=== PATIENT | female | born 1960 | race Caucasian/White ===

== ENCOUNTER 2017-08-11 14:50 | Emergency (ER) | payer BC ==
[~2017-08-11] VITALS: Ht 170.2 cm; Wt 82.7 kg
[2017-08-11 14:57] VITALS: BP 134/83; PULSE 80; RESP 20; TEMP 98.9; O2SAT 97
[2017-08-11] MEDS ORDERED: LEXA20TA PO (15:36)
--- NOTE | 2017-08-11 16:01 | RADRPT ---
EXAM DATE/TIME: 08/11/2017 15:15 [facility] COMPARISON: No previous studies available for comparison. INDICATIONS : Fall on right arm after tripping over dog. MEDICAL HISTORY : None. SURGICAL HISTORY : None. ENCOUNTER: Initial ACUITY: 1 day PAIN SCORE: 10/10 LOCATION: Right shoulder FINDINGS: Two view examination of the right shoulder demonstrates no evidence of fracture or dislocation. The a rm is internally rotated. The glenohumeral and acromioclavicular joints are maintained. Bony minera lization is normal. CONCLUSION: No evidence of acute fracture or dislocation. Maxime Purcell MD on August 11, 2017 at 15:57 Board Certified Radiologist. This report was verified electronically.
--- NOTE | 2017-08-11 16:04 | RADRPT ---
EXAM DATE/TIME: 08/11/2017 15:18 [facility] COMPARISON: ELBOW RIGHT LIMITED (AP & LAT), August 11, 2017, 15:21. INDICATIONS : Fall on right arm after tripping over dog. MEDICAL HISTORY : None. SURGICAL HISTORY : None. ENCOUNTER: Initial ACUITY: 1 day PAIN SCORE: 10/10 LOCATION: Right forearm FINDINGS: Nondisplaced fractures identified through the proximal radial head. There is displacement of anterior fat pad. The radius and ulna are otherwise intact. CONCLUSION: Nondisplaced fracture of the proximal right radial head. Maxime Purcell MD on August 11, 2017 at 15:58 Board Certified Radiologist. This report was verified electronically.
--- NOTE | 2017-08-11 16:09 | RADRPT ---
EXAM DATE/TIME: 08/11/2017 15:21 [facility] COMPARISON: No previous studies available for comparison. INDICATIONS : Fall on right arm after tripping over dog. MEDICAL HISTORY : None. SURGICAL HISTORY : None. ENCOUNTER: Initial ACUITY: 1 day PAIN SCORE: 10/10 LOCATION: Right elbow FINDINGS: AP and lateral views of the elbow show a suspected radial neck fracture. A small joint effusion. Soft tissues are otherwise unremarkable. CONCLUSION: Suspected radial neck fracture with small joint effusion. Consider 4 views of the elbow to better annita luate. Joseph Alexander Jr., MD on August 11, 2017 at 16:06 Board Certified Radiologist. This report was verified electronically.
[2017-08-11] MEDS ORDERED: NORC5TAB PO (16:24)
[2017-08-11] MEDS ORDERED: ACETAMINOPHEN/HYDROcodone 325 MG/5 MG TAB PO ONE (16:30)
--- NOTE | 2017-08-11 16:40 | PD ---
HPI Chief Complaint: Injury Time Seen by Provider: 15:45 Travel History International Travel<30 days: No Contact w/Intl Traveler<30days: No Traveled to known affect area: No History of Present Illness HPI 57-year-old female presents to the emergency room for evaluation of right elbow pain and swelling after injuring it just prior to arrival. Patient was walking her dog, holding the leash with the right hand when the dog took off running. It caused her to fall forward landing on her right arm. She also hit her bilateral knees but denies hitting her head or loss of consciousness. Patient denies any significant pain anywhere except for in her arm. Pain is worsened with any range of motion of the arm or when she dangles it. Relieved with support. She took 800 mg ibuprofen just prior to arrival. She only has history of depression for which she takes Lexapro. Up-to-date on tetanus. PFSH Social History Tobacco Use: No Allergies-Medications (Allergen,Severity, Reaction): Coded Allergies: clindamycin (Verified Allergy, Severe, Anaphylaxis, 08/11/17) wheat (Verified Allergy, Severe, Nausea/Vomiting, 08/11/17) Reported Meds & Prescriptions Reported Meds & Active Scripts Active [place] (Hydrocodone-Acetaminophen) 5 Mg-325 Mg Tab 1 Tab PO Q6H PRN Reported Lexapro (Escitalopram Oxalate) 20 Mg Tab 20 Mg PO DAILY Review of Systems Except as stated in HPI: all other systems reviewed are Neg Physical Exam Narrative GENERAL: Well-nourished, well-developed female in no acute distress. Afebrile. Ambulatory. SKIN: Focused skin assessment warm/dry. No erythema or ecchymosis. HEAD: Normocephalic. EYES: No scleral icterus. No injection or drainage. NECK: Supple, trachea midline. No JVD or lymphadenopathy. CARDIOVASCULAR: Regular rate and rhythm without murmurs, gallops, or rubs. RESPIRATORY: Breath sounds equal bilaterally. No accessory muscle use. MSK: Limited range of motion of the right arm secondary to pain. 2+ radial pulse. Radial, ulnar, and median nerves intact. No bony tenderness to palpation of the right shoulder or humerus. No wrist or hand pain. Data Data Last Documented VS Vital Signs Date Time Temp Pulse Resp B/P (MAP) Pulse Ox O2 Delivery O2 Flow Rate FiO2 08/11/17 14:57 98.9 80 20 134/83 (100) 97 Orders Orders Forearm (2vws) (08/11/17 ) Shoulder, Limited(2vws) (08/11/17 ) Elbow, Limited (Ap&Lat) (08/11/17 ) Splint Or Brace Apply/Monitor (08/11/17 16:15) Acetamin-Hydrocod 325-5 Mg ([place] 5-325 (08/11/17 16:30) MDM Medical Decision Making Medical Screen Exam Complete: Yes Emergency Medical Condition: Yes Medical Record Reviewed: Yes Differential Diagnosis Nondisplaced fracture, sprain, contusion, dislocation Narrative Course 57-year-old female presents to the emergency room for evaluation of right elbow pain after injuring it just prior to arrival. Patient fell on outstretched arm after her dog pulled her over. No other significant injuries. Right upper extremity is neurovascularly intact with 2+ radial pulse. Radial, ulnar, and median nerves intact. Patient has slight limited range of motion of the elbow secondary to pain. There is no obvious deformity. No edema, erythema, or ecchymosis. X-ray shows nondisplaced fracture of the radial head. Patient was given option for sling versus posterior long-arm splint with recommendation more toward sling because she will not have immediate follow-up because she is out of town and goes back home in 4 days. She was given Lortab in the emergency room for pain. Discharge with prescription for Lortab. Told to follow-up with a primary care physician or return for worsening symptoms as needed. She understands and agrees to plan. Diagnosis Primary Impression: Nondisplaced fracture of head of right radius Qualified Codes: S52.124A - Nondisplaced fracture of head of right radius, initial encounter for closed fracture Referrals: Matt Elliott MD Patient Instructions: General Instructions Additional Instructions: Rest and drink plenty of fluids. Use splint for the next 2 days. Range of motion exercises should be started as early as possible. Take ibuprofen with food as directed, as needed for pain. Take [place] as directed, as needed for pain. Do not drink alcohol or drive while taking this medication. Apply ice to the affected area for 20 minutes at a time, as needed for pain and swelling especially over the next 24-48 hours. Follow-up with a primary care physician. Return to the emergency room for worsening symptoms. Med/Other Pt SpecificInfo: Prescription(s) given Scripts Hydrocodone-Acetaminophen ([place]) 5 Mg-325 Mg Tab 1 TAB PO Q6H Y for PAIN, #12 TAB 0 Refills Prov: Lopez Reyes MD 08/11/17 Disposition: 01 DISCHARGE HOME Condition: Stable Marcy Beatty Aug 11, 2017 16:40
== END 2017-08-11 17:03 | disposition home or self-care (01) ==
LOC: NED 14:50 → NEPK 17:03
DX: S52.124A Nondisplaced fracture of head of right radius, initial encounter for closed fracture (principal); F32.9 Major depressive disorder, single episode, unspecified; W18.30XA Fall on same level, unspecified, initial encounter; Y93.K1 Activity, walking an animal; Z88.1 Allergy status to other antibiotic agents; Z79.899 Other long term (current) drug therapy
CPT/HCPCS: 73030; 73070; 73090; 99283